=== PATIENT | female | born 1990 | race Caucasian/White ===

== ENCOUNTER 2020-06-13 22:37 | Emergency (ER) | payer MEDICAID, SELFPAY ==
[2020-06-13 22:53] VITALS: BP 247/143; PULSE 81; RESP 18; TEMP 36.9; O2SAT 96; BMI 32.9
--- NOTE | 2020-06-13 23:09 | US_ITS ---
PROCEDURE: US KIDNEY CLINICAL INDICATION: bilateral flank pain COMPARISON: No exams were available for comparison FINDINGS: Kidneys are normal size shape and position. No hydronephrosis mass or perinephric fluid. IMPRESSION: Unremarkable bilateral renal ultrasound Dictated by: Sanjay Jordan MD 06/14/2020 07:00 Sanjay Jordan MD in [facility] 06/14/2020 07:00
--- NOTE | 2020-06-13 23:11 | PC.NURSE ---
Calling [facility] to attempt to get records from pt's previous visits
--- NOTE | 2020-06-13 23:11 | [facility].EDGENADL ---
ED Disposition Clinical Impression: Hypertensive urgency Renal injury Qualifiers: Encounter type: initial encounter Laterality: unspecified laterality Qualified Code(s): S37.009A - Unspecified injury of unspecified kidney, initial encounter Disposition: Home, Self-Care Condition on Discharge: Good Instructions: Essential Hypertension, How to Create a Suicide Prevention Safety Plan Additional Instructions: You have been evaluated for elevated blood pressure, diagnosed with hypertensive urgency. Please take all medications as prescribed, specifically clonidine and hydralazine. Follow-up with your primary care doctor. Return to the emergency department if you have any new or worsening symptoms. Call the suicide hotline if you have any thoughts of hurting yourself or anyone else. Referrals: PCP,No [Primary Care Provider] - Time of Disposition: :06 - Critical Care Critical Care Time: No Attestation: On 06/13/20, the high probability of a clinically significant, sudden or life threatening deterioration of the following system(s) required my full and direct attention, intervention and personal management. The time I documented below is in addition to time spent performing reported procedures but includes the following listed in this critical care notation. Medical Decision Making - Medical Records Medical records reviewed: Yes: I reviewed the patient's medical records. - Cameron Inquiry Pt receiving controlled substance: No Vital Signs: 06/13/20 22:53 06/13/20 23:27 06/14/20 00:57 Temperature 98.4 F 98.7 F Temperature Source Oral Oral Pulse Rate Pulse Rate [Right] 81 63 Respiratory Rate 18 16 Blood Pressure Blood Pressure [Right Arm] 247/143 H 210/110 H 142/79 H Blood Pressure Mean [Right Arm] 177 143 100 Blood Pressure Source Blood Pressure Source [Right Arm] Automatic Cuff Manual Cuff/ Auscultation Automatic Cuff Blood Pressure Position Blood Pressure Position [Right Arm] Sitting Sitting Supine 02 Sat by Pulse Oximetry 96 97 Oxygen Delivery Method Room Air Room Air 06/14/20 01:17 Temperature 98.9 F Temperature Source Oral Pulse Rate 80 Pulse Rate [Right] Respiratory Rate 18 Blood Pressure 144/96 H Blood Pressure [Right Arm] Blood Pressure Mean [Right Arm] Blood Pressure Source Automatic Cuff Blood Pressure Source [Right Arm] Blood Pressure Position Sitting Blood Pressure Position [Right Arm] 02 Sat by Pulse Oximetry Oxygen Delivery Method Room Air - Lab Data Lab Results 06/13/20 23:00: Urine Opiates Screen Negative, Urine Methadone Screen Negative, Ur Barbituates Screen Positive H, Ur Phencyclidine Scrn Negative, Ur Amphetamines Screen Negative, U Benzodiazepines Scrn Negative, Urine Cocaine Screen Negative, U Marijuana (THC) Screen Negative 06/13/20 23:02: Urine Color Yellow, Urine Appearance Clear, Urine pH 7.0, Ur Specific [place] 1.015, Urine Protein Negative, Urine Glucose (UA) Negative, Urine Ketones Negative, Urine Blood 1+, Urine Nitrate Negative, Urine Bilirubin Negative, Urine Urobilinogen 0.2, Ur Leukocyte Esterase Trace, Urine RBC 5-10, Urine WBC 5-10, Ur Squamous Epith Cells 5-10, Urine Bacteria 1+, Urine Mucus 1+ 06/13/20 23:02: WBC 12.8 H, RBC 3.78 L, Hgb 11.7 L, Hct 33.0 L, MCV 87.2, MCH 30.9, MCHC 35.4, RDW 14.1, Plt Count 642 H, MPV 7.4, Neut % (Auto) 65.3, Lymph % (Auto) 27.1, [place] % (Auto) 4.3, Eos % (Auto) 2.4, Baso % (Auto) 0.8, Neut # (Auto) 8.4 H, Lymph # (Auto) 3.5, [place] # (Auto) 0.6, Eos # (Auto) 0.3, Baso # (Auto) 0.1 06/13/20 23:02: Sodium 140, Potassium 4.2, Chloride 101, Carbon Dioxide 27, Anion Gap 16.2 H, BUN 42 H, Creatinine 2.70 H, Estimated Creat Clear 40, Estimated GFR 21 L, Est GFR ( Amer) 25 L, Glucose 108 H, Calcium 10.1, Total Creatine Kinase 33 06/13/20 23:02: Lipase 174 06/13/20 23:02: Troponin I < 0.01 06/13/20 23:02: HCG, Quant < 2 Result diagrams: 06/13/20 23:02 06/13/20 23:02 Orders (Tests/Meds): E
[2020-06-13 23:13] LABS: Microscopic, Urine URINE MICROSCOPIC (MICROSCOPIC)
[2020-06-13 23:15] LABS: Basophils # 0.1 K/mm3 (0-0.2); Basophils % 0.8 % (0.1-2.0); Eosinophils # 0.3 K/mm3 (0.0-0.4); Eosinophils % 2.4 % (0.1-12.0); Hemoglobin 11.7 g/dL (12.2-16.2); Lymphocytes # 3.5 K/mm3 (0.7-4.5); Lymphocytes % 27.1 % (10-50); Mean Corpuscular HGB Conc 35.4 g/dL (31.8-35.4); Mean Corpuscular Hemoglobin 30.9 pg (27.0-31.2); Mean Corpuscular Volume 87.2 fl (81-99); Mean Platelet Volume 7.4 fl (7.4-10.4); Monocytes # 0.6 K/mm3 (0.1-1.0); Monocytes % 4.3 % (1.7-9.3); Neutrophils # 8.4 K/mm3 (1.8-7.8); Neutrophils % 65.3 % (37.0-80.0); Platelet Count 642 K/mm3 (142-424); Red Blood Count 3.78 M/mm3 (4.20-5.40); Red Cell Distribution Width 14.1 % (11.5-17.5); White Blood Count 12.8 K/mm3 (4.8-10.8)
[2020-06-13 23:16] LABS: Appearance,Urine CLEAR (Clear); Bilirubin,Urine Negative (Negative); Blood, Urine 1+ (Negative); Color,Urine YELLOW (Yellow); Glucose,Urine (UA) Negative (Negative); Ketones,Urine Negative (Negative); Leukocyte Esterase,Urine TRACE (Negative); Nitrate,Urine Negative (Negative); Protein,Urine Negative (Negative); Specific Gravity, Urine 1.015 (1.005-1.030); Urobilinogen,Urine 0.2 EU/dl (0.2)
--- NOTE | 2020-06-13 23:16 | PC.NURSE ---
Spoke with July, housekeeping worker she advised she would fax over the records and asked that we fax the release to [phone]. Filled out release and faxed @ [phone]
[2020-06-13 23:17] LABS: Chloride 101 mmol/L (98-107); Potassium 4.2 mmoL/L (3.5-5.1); Sodium 140 mmol/L (136-145)
[2020-06-13 23:20] LABS: Blood Urea Nitrogen 42 mg/dl (7-17); Creatine Kinase 33 U/L (30-135); Creatinine Clearance Estimated 40 mL/min (50-200); Estimated Glomerular Filt Rate 21 ml/min (>60); GFR (African American) 25 ML/MIN (>60)
[2020-06-13 23:21] LABS: Anion Gap 16.2 mEq/L (5-15); Calcium 10.1 mg/dl (8.4-10.2); Carbon Dioxide 27 mmol/L (22.0-30.0); Glucose 108 mg/dl (74-100); Lipase 174 U/L (23-300)
[2020-06-13 23:27] VITALS: BP 210/110
--- NOTE | 2020-06-13 23:27 | PC.NURSE ---
Manual BP checked - 210/110. notified
[2020-06-13 23:33] LABS: Amphetamine/Metha Screen,Urine Negative ng/ml (<1000)
[2020-06-13 23:33] LABS: Bacteria,Urine 1+ /lpf; Mucus,Urine 1+ /lpf
[2020-06-13 23:34] LABS: Barbiturates Screen,Urine Positive ng/ml (<200); Benzodiazepines Screen,Urine Negative ng/ml (<200)
[2020-06-13 23:35] LABS: Cannabinoid Screen,Urine Negative ng/ml (<50)
[2020-06-13 23:36] LABS: Cocaine Screen,Urine Negative ng/ml (<300); Methadone Screen,Urine Negative ng/ml (<300)
[2020-06-13 23:37] LABS: Phencyclidine Screen,Urine Negative ng/ml (<25)
[2020-06-13 23:38] LABS: Opiate Screen,Urine Negative ng/ml (<300)
[2020-06-13 23:42] LABS: Troponin I < 0.01 ng/ml (0.00-0.034)
[2020-06-14 00:05] LABS: HCG,Quantitative < 2 mIU/ml (0-5.42)
[2020-06-14 00:57] VITALS: BP 142/79; PULSE 63; RESP 16; TEMP 37.1; O2SAT 97
[2020-06-14 01:17] VITALS: BP 144/96; PULSE 80; RESP 18; TEMP 37.2; O2SAT 95
== END 2020-06-14 01:26 | disposition home or self-care (01) ==
PROVIDERS: Emergency Provider Emergency Medicine
DX: I16.0 Hypertensive urgency (principal); S37.009A Unspecified injury of unspecified kidney, initial encounter; F17.210 Nicotine dependence, cigarettes, uncomplicated; Z91.040 Latex allergy status; G47.00 Insomnia, unspecified
CPT/HCPCS: 76770; 80048; 80305; 81001; 82550; 83690; 84484; 84702; 85025; 99283